=== PATIENT | male | born 2000 | race African-American/Black ===

== ENCOUNTER 2023-04-24 17:28 | Emergency (ER) | payer SELFPAY ==
[2023-04-24 19:05] LABS: SARS-CoV-2 NAA Rapid Test Not Detected (NotDetected)
== END 2023-04-24 19:49 | disposition home or self-care (01) ==
LOC: CSHERS 17:28
DX: J10.1 Influenza due to other identified influenza virus with other respiratory manifestations (principal)
CPT/HCPCS: 99284

== ENCOUNTER 2023-09-25 18:04 | Emergency (ER) | payer OTHER, SELFPAY ==
[2023-09-25] MEDS ORDERED: Ketorolac Tromethamine 30 MG (1 mL) VIAL ONE (18:48)
[2023-09-25] MEDS ORDERED: Ondansetron ODT 4 MG TAB ONE (18:48)
== END 2023-09-25 20:35 | disposition home or self-care (01) ==
LOC: CSHERS 18:04
DX: R11.10 Vomiting, unspecified (principal); R51.9 Headache, unspecified
CPT/HCPCS: 96372; 99283; J1885; Q0162

== ENCOUNTER 2023-10-03 06:45 | Emergency (ER) | payer OTHER ==
[2023-10-03] MEDS ORDERED: Ketorolac Tromethamine 30 MG (1 mL) VIAL ONE (07:26)
[2023-10-03] MEDS ORDERED: Clindamycin/D5W 900 MG in Premix 1 BAG IVPB SCH (07:45)
== END 2023-10-03 08:07 | disposition home or self-care (01) ==
LOC: CSHERS 06:45
DX: L03.115 Cellulitis of right lower limb (principal)
CPT/HCPCS: 96365; 96375; J1885; J3490